=== PATIENT | female | born 1945 | race Caucasian/White ===

== ENCOUNTER → 2024-08-10 08:57 | Outpatient (REF) | payer MEDICARE, BC, SELFPAY ==
[2024-08-10 12:48] LABS: ALT (SGPT) 28 U/L (0-35); AST (SGOT) 31 U/L (14-36); HDL Cholesterol 85 mg/dl; LDL Cholesterol, Calculated 148 mg/dl; Total Cholesterol 250 mg/dl (50-199); Triglyceride 89 mg/dl (10-149); Very Low Density Lipoprotein 17 mg/dl (0-30)
== END ==
LOC: HWLAB 08:57
PROVIDERS: ATTENDING PHYSICIAN Internal Medicine
DX: E78.5 Hyperlipidemia, unspecified (principal)
CPT/HCPCS: 36415; 80061; 84450; 84460

== ENCOUNTER → 2024-10-15 12:23 | Outpatient (REF) | payer MEDICARE, BC, SELFPAY | LOC: HWWDC 12:23 | PROVIDERS: ATTENDING PHYSICIAN Internal Medicine | DX: Z12.31 Encounter for screening mammogram for malignant neoplasm of breast (principal) | CPT/HCPCS: 77063; 77067 ==

== ENCOUNTER → 2025-05-19 08:15 | Outpatient (REF) | payer MEDICARE, BC, SELFPAY | LOC: RAD 08:15 | PROVIDERS: ATTENDING PHYSICIAN Internal Medicine Gastroenterology; FAMILY PHYSICIAN Internal Medicine | DX: K59.00 Constipation, unspecified (principal) | CPT/HCPCS: 74018 ==

== ENCOUNTER 2025-06-29 06:19 | Day surgery (SDC) | payer MEDICARE, BC, SELFPAY | END 2025-06-29 15:37 | disposition home or self-care (01) | LOC: GI 06:19 | PROVIDERS: ATTENDING PHYSICIAN Internal Medicine Gastroenterology | DX: R19.4 Change in bowel habit (principal); K64.9 Unspecified hemorrhoids; K57.30 Diverticulosis of large intestine without perforation or abscess without bleeding; D12.3 Benign neoplasm of transverse colon; D12.0 Benign neoplasm of cecum; D12.2 Benign neoplasm of ascending colon | CPT/HCPCS: 45390; 45380; 45381; 88305 ==